=== PATIENT | female | born 1960 | race Caucasian/White ===

== ENCOUNTER 2016-08-04 15:37 | Emergency (ER) | payer MEDICARE, OTHER ==
--- NOTE | 2016-08-04 18:31 | EDDOCDS ---
Physician Documentation [facility] Name: Zeeshan Kinney Age: 56 yrs Sex: Female : 1960 Arrival Date: 08/04/2016 Time: 15:37 Bed TR7 Private MD: [facility] Disposition: 08/04/16 18:18 Discharged to Home/Self Care. Impression: Diarrhea, unspecified, Generalized abdominal pain - resolved. - Condition is Stable. - Discharge Instructions: Abdominal Pain, Adult, Food Choices to Help Relieve Diarrhea, Adult, Diarrhea. - Medication Reconciliation, Local Pharmacy Hours form. - Follow up: [facility]; When: Call to arrange an appointment; Reason: Recheck today's complaints, Continuance of care. - Problem is new. - Symptoms have improved. Historical: - Allergies: No known drug Allergies; - Home Meds: 1. levothyroxine 50 mcg Oral cap 1 cap once daily (Last dose: 08/04/2016 14:00) 2. multivitamin with minerals oral tab - PMHx: Hypothyroidism; Chronic Back pain; - PSHx: Biopsy, Breast- Left; Biopsy, Breast- Right; PRK Eye Surgery; - Social history: Smoking status: Patient states was never smoker of tobacco. No barriers to communication noted, The patient speaks fluent Tajik, Speaks appropriately for age. - Family history: Not pertinent. - : The pt / caregiver states he / she is not on anticoagulants. Home medication list is obtained from the patient. - Exposure Risk Screening:: None identified. Vital Signs: 08/04 15:40 BP 116 / 74; Pulse 81; Resp 18 S; Temp 97.8(O); Pulse Ox 96% on R/A; Weight 68.95 kg / gr2 152.01 lbs (R); Height 5 ft. 4 in. (162.56 cm) (R); Pain 4/10; 18:26 BP 111 / 81; Pulse 77; Resp 18; Temp 98.6; Pulse Ox 97% on R/A; Pain 0/10; ttb 15:40 Body Mass Index 26.09 (68.95 kg, 162.56 cm) gr2 MDM: 18:15 GASTROINTESTINAL (GI) PANEL Ordered. EDMS 18:28 Financial registration complete. zo Signatures: Dispatcher [employer] EDMS Geovanni Chand Hannah RN RN hs1 Janki Good RN RN ttb Mj Case PA PA mo1 The chart was reviewed and I authenticate all verbal orders and agree with the evaluation and treatment provided.Corrections: (The following items were deleted from the chart) 18:15 18:13 GASTROINTESTINAL (GI) PANEL+CHERISE ordered. EDMS EDMS MTDD
--- NOTE | 2016-08-04 18:31 | EDDOCDS ---
Nurse's Notes [facility] Name: Zeeshan Kinney Age: 56 yrs Sex: Female : 1960 Arrival Date: 08/04/2016 Time: 15:37 Bed TR7 Private MD: [facility] [place] Diagnosis: Diarrhea, unspecified;Generalized abdominal pain-resolved Presentation: 08/04 15:45 Presenting complaint: Patient states: last night woke up out of sleep with cramps and hs1 had to use bathroom and has been having diarrhea. Patient stated this morning patient still crampy and went to bathroom and saw blood clots. Patient reports blood noted in toilet x2 today. Patient also states same thing happening 1 month ago. Adult Sepsis Screening: The patient does not have new or worsening altered mentation. Patient's respiratory rate is less than 22. Systolic blood pressure is greater than 100. Patient has a qSOFA score of 0- Negative Sepsis Screen. Suicide/Homicide risk assessment- the patient denies having any suicidal and/or homicidal ideations and does not present with any other emotional, behavioral or mental health complaints. 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 Transition of care: patient was not received from another setting of care. 15:45 Acuity: ELDA Level 3 hs1 15:45 Method Of Arrival: Walkin/Carried/Asstd hs1 Triage Assessment: 15:50 General: Appears in no apparent distress, Behavior is appropriate for age, cooperative. hs1 Pain: Location: abdomen Pain currently is 4 out of 10 on a pain scale. At worst was 8 out of 10 on a pain scale. Pt Declines HIV testing. GI: Reports bloody stools cramping. Historical: - Allergies: No known drug Allergies; - Home Meds: 1. levothyroxine 50 mcg Oral cap 1 cap once daily (Last dose: 08/04/2016 14:00) 2. multivitamin with minerals oral tab - PMHx: Hypothyroidism; Chronic Back pain; - PSHx: Biopsy, Breast- Left; Biopsy, Breast- Right; PRK Eye Surgery; - Social history: Smoking status: Patient states was never smoker of tobacco. No barriers to communication noted, The patient speaks fluent Nepalese, Speaks appropriately for age. - Family history: Not pertinent. - : The pt / caregiver states he / she is not on anticoagulants. Home medication list is obtained from the patient. - Exposure Risk Screening:: None identified. Screenin:26 Screening information is obtained from the patient. Fall risk: No risks identified. ttb Assistance ADL's: requires no assistance with activities of daily living. Abuse/DV Screen: The patient / caregiver reports he/she is: not in a situation that causes fear, pain or injury. Nutritional screening: No deficits noted. Advance Directives: Currently, there is no health care proxy. home support is adequate. Assessment: 18:26 General: Appears in no apparent distress, well nourished, well groomed, Behavior is ttb appropriate for age, cooperative, pleasant. Pain: Denies pain. Neurological: Level of Consciousness is awake, alert. Respiratory: Airway is patent. GI: Abdomen is non- distended Bowel sounds present X 4 quads. Abd is soft Reports diarrhea. Derm: Skin is normal. Vital Signs: 15:40 BP 116 / 74; Pulse 81; Resp 18 S; Temp 97.8(O); Pulse Ox 96% on R/A; Weight 68.95 kg gr2 (R); Height 5 ft. 4 in. (162.56 cm) (R); Pain 4/10; 18:26 BP 111 / 81; Pulse 77; Resp 18; Temp 98.6; Pulse Ox 97% on R/A; Pain 0/10; ttb 15:40 Body Mass Index 26.09 (68.95 kg, 162.56 cm) gr2 Vitals: 15:40 Log In Time: August 04, 2016 at 15:40. gr2 ED Course: 15:38 Patient visited by Bryan Garcia. gr2 15:38 Patient moved to Waiting gr2 15:[address] [facility] is Private Physician. gr2 15:43 Patient visited by Bryan Garcia. gr2 15:44 Patient moved to Pre RCE gr2 15:48 Triage Initiated hs1 17:19 Patient moved to Triage 3 ct3 17:43 Mj Case PA is PHCP. mo1 17:43 Gorge Miles MD is Attending Physician. mo1 17:48 Patient visited by Mj Case PA. mo1 18:[address] [facility] is Referral Physician. mo1 18:20 GASTROINTESTINAL (GI) PANEL Sent. ct3 18:23 Patient moved to TR7 ttb 18:26 The patient / caregiver is instructed regarding the plan of care and ED course. Patient ttb has correct armband on for positive identification. 18:26 No IV's were initiated during this patient's visit. No procedures done that require ttb assistance. Labs drawn. (by ED staff). Order Results: There are currently no results for this order. Outcome: 18:18 Discharge ordered by Provider. mo1 18:26 Discharge Assessment: Patient awake, alert and oriented x 3. No cognitive and/or ttb functional deficits noted. Patient verbalized understanding of disposition instructions. Patient awake and alert. patient administered narcotics - no. The following High Risk Discharge criteria are identified: None. Discharged to home ambulatory. Condition: good Condition: stable Condition: improved. Discharge instructions given to patient, Instructed on discharge instructions, follow up and referral plans. medication usage, diet, Demonstrated understanding of instructions, medications, Pt was receptive of discharge instructions/ teaching. No special radiology studies were completed. Property :Personal belongings accompany Pt. 18:30 Patient left the ED. ttb Signatures: Madina Flowers, RN RN hs1 Clarissa Schultz, MARKETING MGR MARKETING MGR ct3 Janki Good RN RN ttb Bryan Garcia gr2 Mj Case PA PA mo1 MTDD
--- NOTE | 2016-08-06 19:31 | EDDOCDS ---
Physician Documentation [facility] Name: Zeeshan Kinney Age: 56 yrs Sex: Female : 1960 Arrival Date: 08/04/2016 Time: 15:37 Bed TR7 Private MD: [facility] Disposition: 08/04/16 18:18 Discharged to Home/Self Care. Impression: Diarrhea, unspecified, Generalized abdominal pain - resolved. - Condition is Stable. - Discharge Instructions: Abdominal Pain, Adult, Food Choices to Help Relieve Diarrhea, Adult, Diarrhea. - Medication Reconciliation, Local Pharmacy Hours form. - Follow up: [facility]; When: Call to arrange an appointment; Reason: Recheck today's complaints, Continuance of care. - Problem is new. - Symptoms have improved. Historical: - Allergies: No known drug Allergies; - Home Meds: 1. levothyroxine 50 mcg Oral cap 1 cap once daily (Last dose: 08/04/2016 14:00) 2. multivitamin with minerals oral tab - PMHx: Hypothyroidism; Chronic Back pain; - PSHx: Biopsy, Breast- Left; Biopsy, Breast- Right; PRK Eye Surgery; - Social history: Smoking status: Patient states was never smoker of tobacco. No barriers to communication noted, The patient speaks fluent Turkmen, Speaks appropriately for age. - Family history: Not pertinent. - : The pt / caregiver states he / she is not on anticoagulants. Home medication list is obtained from the patient. - Exposure Risk Screening:: None identified. Vital Signs: 08/04 15:40 BP 116 / 74; Pulse 81; Resp 18 S; Temp 97.8(O); Pulse Ox 96% on R/A; Weight 68.95 kg / gr2 152.01 lbs (R); Height 5 ft. 4 in. (162.56 cm) (R); Pain 4/10; 18:26 BP 111 / 81; Pulse 77; Resp 18; Temp 98.6; Pulse Ox 97% on R/A; Pain 0/10; ttb 15:40 Body Mass Index 26.09 (68.95 kg, 162.56 cm) gr2 MDM: 18:15 GASTROINTESTINAL (GI) PANEL Ordered. EDMS 18:28 Financial registration complete. zo 18:38 [facility] Payment Agreement was scanned into [employer] and attached to record. zo 08/05 10:58 T-Sheet-- Draft Copy was scanned into [employer] and attached to record. gb Signatures: Dispatcher [employer] EDMS Cesilia Booth, Reg Reg gb Geovanni Chand Madina Maria RN RN hs1 Janki Good RN RN ttb Mj Case PA PA mo1 The chart was reviewed and I authenticate all verbal orders and agree with the evaluation and treatment provided.Corrections: (The following items were deleted from the chart) 08/04 18:15 18:13 GASTROINTESTINAL (GI) PANEL+CHERISE ordered. EDMS EDMS Attachments: 18:38 [facility] Payment Agreement zo 08/05 10:58 T-Sheet-- Draft Copy gb Chart Complete MTDD
--- NOTE | 2016-08-06 19:31 | EDDOCDS ---
Nurse's Notes [facility] Name: Zeeshan Kinney Age: 56 yrs Sex: Female : 1960 Arrival Date: 08/04/2016 Time: 15:37 Bed TR7 Private MD: [facility], [place] Diagnosis: Diarrhea, unspecified;Generalized abdominal pain-resolved Presentation: 08/04 15:45 Presenting complaint: Patient states: last night woke up out of sleep with cramps and hs1 had to use bathroom and has been having diarrhea. Patient stated this morning patient still crampy and went to bathroom and saw blood clots. Patient reports blood noted in toilet x2 today. Patient also states same thing happening 1 month ago. Adult Sepsis Screening: The patient does not have new or worsening altered mentation. Patient's respiratory rate is less than 22. Systolic blood pressure is greater than 100. Patient has a qSOFA score of 0- Negative Sepsis Screen. Suicide/Homicide risk assessment- the patient denies having any suicidal and/or homicidal ideations and does not present with any other emotional, behavioral or mental health complaints. 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 Transition of care: patient was not received from another setting of care. 15:45 Acuity: ELDA Level 3 hs1 15:45 Method Of Arrival: Walkin/Carried/Asstd hs1 Triage Assessment: 15:50 General: Appears in no apparent distress, Behavior is appropriate for age, cooperative. hs1 Pain: Location: abdomen Pain currently is 4 out of 10 on a pain scale. At worst was 8 out of 10 on a pain scale. Pt Declines HIV testing. GI: Reports bloody stools cramping. Historical: - Allergies: No known drug Allergies; - Home Meds: 1. levothyroxine 50 mcg Oral cap 1 cap once daily (Last dose: 08/04/2016 14:00) 2. multivitamin with minerals oral tab - PMHx: Hypothyroidism; Chronic Back pain; - PSHx: Biopsy, Breast- Left; Biopsy, Breast- Right; PRK Eye Surgery; - Social history: Smoking status: Patient states was never smoker of tobacco. No barriers to communication noted, The patient speaks fluent Maltese, Speaks appropriately for age. - Family history: Not pertinent. - : The pt / caregiver states he / she is not on anticoagulants. Home medication list is obtained from the patient. - Exposure Risk Screening:: None identified. Screenin:26 Screening information is obtained from the patient. Fall risk: No risks identified. ttb Assistance ADL's: requires no assistance with activities of daily living. Abuse/DV Screen: The patient / caregiver reports he/she is: not in a situation that causes fear, pain or injury. Nutritional screening: No deficits noted. Advance Directives: Currently, there is no health care proxy. home support is adequate. Assessment: 18:26 General: Appears in no apparent distress, well nourished, well groomed, Behavior is ttb appropriate for age, cooperative, pleasant. Pain: Denies pain. Neurological: Level of Consciousness is awake, alert. Respiratory: Airway is patent. GI: Abdomen is non- distended Bowel sounds present X 4 quads. Abd is soft Reports diarrhea. Derm: Skin is normal. Vital Signs: 15:40 BP 116 / 74; Pulse 81; Resp 18 S; Temp 97.8(O); Pulse Ox 96% on R/A; Weight 68.95 kg gr2 (R); Height 5 ft. 4 in. (162.56 cm) (R); Pain 4/10; 18:26 BP 111 / 81; Pulse 77; Resp 18; Temp 98.6; Pulse Ox 97% on R/A; Pain 0/10; ttb 15:40 Body Mass Index 26.09 (68.95 kg, 162.56 cm) gr2 Vitals: 15:40 Log In Time: August 04, 2016 at 15:40. gr2 ED Course: 15:38 Patient visited by Bryan Garcia. gr2 15:38 Patient moved to Waiting gr2 15:39 [facility] is Private Physician. gr2 15:43 Patient visited by Bryan Garcia. gr2 15:44 Patient moved to Pre RCE gr2 15:48 Triage Initiated hs1 17:19 Patient moved to Triage 3 ct3 17:43 Mj Case PA is PHCP. mo1 17:43 Gorge Miles MD is Attending Physician. mo1 17:48 Patient visited by Mj Case PA. mo1 18:18 [facility] is Referral Physician. mo1 18:20 GASTROINTESTINAL (GI) PANEL Sent. ct3 18:23 Patient moved to TR7 ttb 18:26 The patient / caregiver is instructed regarding the plan of care and ED course. Patient ttb has correct armband on for positive identification. 18:26 No IV's were initiated during this patient's visit. No procedures done that require ttb assistance. Labs drawn. (by ED staff). 18:38 [facility] [place] Agreement was scanned into [employer] and attached to record. zo 18:54 Patient name changed from Zeeshan\S\\S\Finin\S\ to Zeeshan\S\ \S\Finin. EDMS 08/05 10:58 T-Sheet-- Draft Copy was scanned into [employer] and attached to record. gb Order Results: Lab Order: GASTROINTESTINAL (GI) PANEL; SPEC'M 08/04/16 18:19 Test: GASTROINTESTINAL (GI) PANEL; Value: GI PANEL RESULT NEGATIVE by PCR; Status: F Test: GASTROINTESTINAL (GI) PANEL; Value: Comments:; Status: F Test Note: ; This Gastrointestinal PCR Panel detects the following bacteria, parasites and viruses: Campylobacter (jejuni, coli and upsaliensis), Clostridium difficile (toxin A/B), Plesiomonas shigelloides, Salmonella, Yersinia enterocolitica, Vibrio (parahaemolyticus, vulnificus and cholerae), Vibrio clolerae, Enteroaggregative E. coli (EAEC), Enteropathogenis E. coli (EPEC), Enterotoxigenic E. coli (ETEC) it/st, Shiga-like producing E. coli (STEC) stx1/stc2, E.coli O157, Shigella/Enteroinvasive E. coli (EIEC), Cryptosporidium, Cyclospora cayetanensis, Entamoeba histolytica, Giardia lamblia, Adenovirus F 40/41, Astrovirus, Norovirus GI/GII, Rotavirus A and Sapovirus (I, II, IV, V). Outcome: 08/04 18:18 Discharge ordered by Provider. mo1 18:26 Discharge Assessment: Patient awake, alert and oriented x 3. No cognitive and/or ttb functional deficits noted. Patient verbalized understanding of disposition instructions. Patient awake and alert. patient administered narcotics - no. The following High Risk Discharge criteria are identified: None. Discharged to home ambulatory. Condition: good Condition: stable Condition: improved. Discharge instructions given to patient, Instructed on discharge instructions, follow up and referral plans. medication usage, diet, Demonstrated understanding of instructions, medications, Pt was receptive of discharge instructions/ teaching. No special radiology studies were completed. Property :Personal belongings accompany Pt. 18:30 Patient left the ED. ttb Signatures: Dispatcher [employer] EDMS Cesilia Booth, Reg Reg gb Mannie, Madina Jang RN RN hs1 Clarissa Schultz, PSYCHOLOGIST PSYCHOLOGIST ct3 Janki Good RN RN ttb Bryan Garcia gr2 Mj Case PA PA mo1 Chart Complete MTDD
--- NOTE | 2016-08-06 19:31 | EDDOCDS ---
Physician Documentation [facility] Name: Zeeshan Kinney Age: 56 yrs Sex: Female : 1960 Arrival Date: 08/04/2016 Time: 15:37 Bed TR7 Private MD: [facility] Disposition: 08/04/16 18:18 Discharged to Home/Self Care. Impression: Diarrhea, unspecified, Generalized abdominal pain - resolved. - Condition is Stable. - Discharge Instructions: Abdominal Pain, Adult, Food Choices to Help Relieve Diarrhea, Adult, Diarrhea. - Medication Reconciliation, Local Pharmacy Hours form. - Follow up: [facility]; When: Call to arrange an appointment; Reason: Recheck today's complaints, Continuance of care. - Problem is new. - Symptoms have improved. Historical: - Allergies: No known drug Allergies; - Home Meds: 1. levothyroxine 50 mcg Oral cap 1 cap once daily (Last dose: 08/04/2016 14:00) 2. multivitamin with minerals oral tab - PMHx: Hypothyroidism; Chronic Back pain; - PSHx: Biopsy, Breast- Left; Biopsy, Breast- Right; PRK Eye Surgery; - Social history: Smoking status: Patient states was never smoker of tobacco. No barriers to communication noted, The patient speaks fluent Macedonian, Speaks appropriately for age. - Family history: Not pertinent. - : The pt / caregiver states he / she is not on anticoagulants. Home medication list is obtained from the patient. - Exposure Risk Screening:: None identified. Vital Signs: 08/04 15:40 BP 116 / 74; Pulse 81; Resp 18 S; Temp 97.8(O); Pulse Ox 96% on R/A; Weight 68.95 kg / gr2 152.01 lbs (R); Height 5 ft. 4 in. (162.56 cm) (R); Pain 4/10; 18:26 BP 111 / 81; Pulse 77; Resp 18; Temp 98.6; Pulse Ox 97% on R/A; Pain 0/10; ttb 15:40 Body Mass Index 26.09 (68.95 kg, 162.56 cm) gr2 MDM: 18:15 GASTROINTESTINAL (GI) PANEL Ordered. EDMS 18:28 Financial registration complete. zo 18:38 [facility] Payment Agreement was scanned into [employer] and attached to record. zo 08/05 10:58 T-Sheet-- Draft Copy was scanned into [employer] and attached to record. gb Signatures: Dispatcher [employer] EDMS Cesilia Booth, Reg Reg gb Geovanni Chand Madina Maria RN RN hs1 Janki Good RN RN ttb Mj Case PA PA mo1 The chart was reviewed and I authenticate all verbal orders and agree with the evaluation and treatment provided.Corrections: (The following items were deleted from the chart) 08/04 18:15 18:13 GASTROINTESTINAL (GI) PANEL+CHERISE ordered. EDMS EDMS Attachments: 18:38 [facility] Payment Agreement zo 08/05 10:58 T-Sheet-- Draft Copy gb Chart Complete MTDD
== END 2016-08-04 18:30 | disposition home or self-care (01) ==
LOC: M ED 15:37
DX: R10.84 Generalized abdominal pain (principal); R19.7 Diarrhea, unspecified; E03.9 Hypothyroidism, unspecified; M54.5 Low back pain; Z79.899 Other long term (current) drug therapy